=== PATIENT | female | born 1945 | race Caucasian/White ===

== ENCOUNTER 2017-04-25 17:27 | Emergency (ER) | payer MEDICARE, BC ==
[2016-01-11 08:45] VITALS: BMI 20.9
[~2017-04-25 17:27] MED LIST: ALENDRONATE SOD35 MG PO; BAYER CHEWABLE81 MG PO; LIPITOR10 MG PO; MULTIPLE VITAMI1 TA1 PO; NORVASC5 MG PO; PRINIVIL20 MG PO
[2017-04-25 18:12] LABS: BASOPHILS 0.1 % (0-2); EOSINOPHILS 0.7 % (0-7); HEMATOCRIT 41.6 % (36.0-48.0); HEMOGLOBIN 13.8 g/dL (12-16); IMMATURE GRANULOCYTES 0.3 % (0-5); LYMPHOCYTES 34.5 % (15-50); MCH 30.6 pg (26.0-34.0); MCHC 33.2 g/dL (31.0-37.0); MCV 92.2 fL (80.0-100.0); MEAN PLATELET VOLUME 9.9 fL (7.4-10.4); NEUTROPHILS 58.4 % (40-80); PLATELET COUNT 203 10x3/uL (130-400); RBC 4.51 10x6/uL (4.00-5.40); RDW 12.8 % (11.5-14.5)
[2017-04-25 18:38] LABS: ALBUMIN 3.7 g/dL (3.4-5.0); ALKALINE PHOSPHATASE 31 U/L (46-116); ALT (SGPT) 23 U/L (10-68); AMYLASE - SERUM 78 U/L (25-115); BILIRUBIN - TOTAL 0.37 mg/dL (0.2-1.3); CALC OSMOLALITY 284 mosm/kg (275-300); CALCIUM 9.8 mg/dL (8.5-10.1); CARBON DIOXIDE 30.5 mmol/L (21.0-32.0); CHLORIDE - SERUM 105 mmol/L (98-107); CREATININE - SERUM 0.8 mg/dL (0.6-1.3); GLUCOSE 101 mg/dL (74-106); LIPASE 189 U/L (73-393); POTASSIUM - SERUM 4.2 mmol/L (3.5-5.1); SODIUM 141 mmol/L (136-145); UREA NITROGEN 23 mg/dL (7-18); eGFR NON AFRICAN AMERICAN 75 mL/min (90-120)
[2017-04-25 18:58] LABS: APPEARANCE CLEAR (CLEAR); COLOR YELLOW (YELLOW); GLUCOSE NEGATIVE (NEGATIVE); KETONE NEGATIVE (NEGATIVE); LEUKOCYTE ESTERASE NEGATIVE (NEGATIVE); NITRITE NEGATIVE (NEGATIVE); PROTEIN NEGATIVE (NEGATIVE); UROBILINOGEN NORMAL (NORMAL)
[2017-04-25 18:59] LABS: BILIRUBIN NEGATIVE (NEGATIVE)
[2017-04-25 19:20] LABS: CKMB 0.6 U/L (0.0-3.6); CREATINE KINASE 70 UL (21-215)
[2017-04-25 19:26] LABS: TROPONIN-I < 0.017 ng/mL (0.000-0.060)
== END 2017-04-25 20:42 | disposition home or self-care (01) ==
LOC: D.ER 17:27
PROVIDERS: Emergency Medicine; Physician Assistant
DX: R07.9 Chest pain, unspecified (principal)

== ENCOUNTER → 2017-05-09 17:18 | Outpatient (CLI) | payer MEDICARE, BC ==
[2016-01-11 08:45] VITALS: BMI 20.9
== END | disposition home or self-care (01) ==
LOC: D.MAMMO 05-05 10:00
DX: Z12.31 Encounter for screening mammogram for malignant neoplasm of breast (principal)

== ENCOUNTER 2019-06-11 13:30 | Outpatient (CLI) | payer MEDICARE, BC ==
[2016-01-11 08:45] VITALS: BMI 20.9
== END 2019-06-11 14:00 | disposition home or self-care (01) ==
LOC: D.MAMMO 13:30
PROVIDERS: ATTEND Family Medicine
DX: Z12.31 Encounter for screening mammogram for malignant neoplasm of breast (principal)

== ENCOUNTER → 2019-09-04 08:59 | Outpatient (CLI) | payer MEDICARE, BC ==
[2016-01-11 08:45] VITALS: BMI 20.9
--- NOTE | 2019-09-06 13:51 | EC ---
PATIENT:DEANN JI DATE OF SERVICE: 09/04/19 SEX: F MEDICAL RECORD: [id number] DATE OF : 45 LOCATION:[facility] AGE OF PATIENT: 73 ADMISSION DATE: 09/04/19 REFERRING PHYSICIAN: INTERPRETING PHYSICIAN: LAURA TESFAYE MD ECHOCARDIOGRAM REPORT ECHO CHARGES 4 ECHO COMPLETE Date: 09/04/19 CLINICAL DIAGNOSIS: AORTIC INSUFF HX HTN/PALPS ECHOCARDIOGRAPHIC MEASUREMENTS (adult normal given) AC root (d.<3.7cm) 2.8 cm LV Septum d (<1.2 cm> 1.0 cm Valve Excursion 1.7 cm LV Septum (systole) 1.3 cm Left Atria (s.<4.0cm> 3.9 cm LVPW d(<1.2cm) 1.1 cm RV (d.<2.3cm) 2.9 cm LVPW (sytole) 1.4 cm LV diastole(<5.6CM) 3.9 cm MV E-F(>70mm/sec) cm LV systole 2.3 cm LVOT Diameter 1.8 cm MV exc.(>10mm) 1.2 cm Est.ejection fraction (50-75%) % DOPPLER: LVIT cm/sec A 80.0 cm/sec E 65.0 cm/sec LA cm/sec RVSP 34 mmHg LVOT 81 cm/sec AOP1/2T 439 m/s Asc. Ao 106 cm/sec RVOT 64 cm/sec RA cm/sec PA 83 cm/sec AV Gradient Peak 4.46 mmHg AV Mean 2.61 mmHg AV Area 2.0 cm MV Gradient Peak 3.51 mmHg MV Mean 0.86 mmHg MV Area cm COMMENTS: Buck Presser: Azar GRIGGS Senior Asic Design Engineer: 3 Dr. Kebede TAPE# PACS Pericardial Effusion N DATE OF SERVICE: 09/04/2019 Adequate 2D, color flow imaging, spectral Doppler, M-mode. No LVH. LV internal dimension is normal. Wall motion is normal. EF is greater than or equal to 55%. Aortic valve is sclerosed without stenosis by Doppler interrogation. Mild AI by color flow imaging. Left atrium is normal at 3.9 cm. 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 Right-sided chambers are grossly normal. Mild TR with color flow imaging. TRANSINT:[id number] Voice Confirmation ID: [id number] DOCUMENT ID: [id number] ECHOCARDIOGRAM REPORT [id number] DEANN JI,LAURA Holcomb MD at 1351 CC: [id number] DICTATION DATE: 09/05/19 1334 ELECTRONIC ASSEMBLER GROUP LEADER: 09/05/192019 DEP CLI 09/04/19 [place] [id number]
== END | disposition home or self-care (01) ==
LOC: D.HCCECHO 08:59
PROVIDERS: ATTEND Internal Medicine Interventional Cardiology
DX: I35.1 Nonrheumatic aortic (valve) insufficiency (principal)

== ENCOUNTER → 2019-09-11 11:03 | Outpatient (CLI) | payer MEDICARE, BC ==
[2016-01-11 08:45] VITALS: BMI 20.9
== END | disposition home or self-care (01) ==
LOC: D.NM 11:03
PROVIDERS: ATTEND Surgery
DX: M54.9 Dorsalgia, unspecified (principal); R11.2 Nausea with vomiting, unspecified

== ENCOUNTER → 2019-12-26 09:09 | Outpatient (CLI) | payer MEDICARE, BC ==
[2016-01-11 08:45] VITALS: BMI 20.9
== END | disposition home or self-care (01) ==
LOC: D.MRI 09:09
PROVIDERS: ATTEND Internal Medicine Gastroenterology
DX: R10.9 Unspecified abdominal pain (principal); R63.4 Abnormal weight loss